=== PATIENT | male | born 1985 | race Caucasian/White ===

== ENCOUNTER 2021-01-14 16:39 | Inpatient (IN) ==
[2021-01-14] MEDS ORDERED: CLINDAMYCIN 900 MG in DEXTROSE 5% 50 ML IV ONE (17:29)
[2021-01-14] MEDS ORDERED: ONDANSETRON INJ 2 MG/ML 2 ML VIAL IV STA (17:29)
[2021-01-14] MEDS ORDERED: SODIUM CHLORIDE 0.9% 500 ML IV SCH (17:30)
[2021-01-14 17:48] LABS: Basophils # (auto) 0.01 K/uL (0-0.2); Basophils % (auto) 0.1 %; Eosinophils # (auto) 0.02 K/uL (0-0.5); Eosinophils % (auto) 0.2 %; Hematocrit (blood only) 39.8 % (42-52); Hemoglobin 13.7 g/dL (14.0-18.0); Immature Granulocytes # (auto) 0.02 K/uL (0.00-0.02); Immature Granulocytes % (auto) 0.2 %; Lymphocytes # (auto) 0.74 K/uL (1.2-3.4); Lymphocytes % (auto) 8.6 %; Mean Corpuscular Hemoglobin 31.7 pg (25-34); Mean Corpuscular Hgb Conc 34.4 g/dL (32-36); Mean Corpuscular Volume 92.1 fL (80-100); Mean Platelet Volume 12.1 fL (7.4-10.4); Monocytes % (auto) 8.1 %; Neutrophils # (auto) 7.16 K/uL (1.4-6.5); Neutrophils % (auto) 82.8 %; Platelet Count 144 K/uL (130-400); RDW Coefficient of Variation 12.5 % (11.5-14.5); RDW Standard Deviation 42.5 fL (36.4-46.3); Red Blood Count 4.32 M/uL (4.7-6.1); White Blood Count 8.65 K/uL (4.8-10.8)
[2021-01-14] MEDS: MoRPHine SULFATE 4 MG/ML 1 ML CARP\\VIAL IV PRN ×2 (17:55→19:07)
--- NOTE | 2021-01-14 18:02 | Emergency Department Note ---
Impression & Plan Submandibular abscess, Failure of outpatient treatment, Jaw pain ED Provider Note NAME: ANDREZ RG AGE: 35 SEX: M : 1985 ARRIVES VIA: Walk-In INFORMANT: [Patient] ED PROVIDER(S): [Terry Gonzalez MD] CHIEF COMPLAINT: Jaw pain and swelling HISTORY OF PRESENT ILLNESS: Patient is a 35-year-old male who presents to the ER with right jaw pain and swelling. The patient was seen in our ED around 36 hours ago and diagnosed with a submandibular abscess. He was given IV antibiotics. Lab work was okay. CT scan did show the abscess, there was no airway issues at the time. Patient has continued with the Augmentin. He attempted to schedule a facial surgical ap pointment but, cannot be seen until May, months from now. Patient presents tonight with severe, 9/10 jaw pain. He has trismus in that he cannot open his jaw. He cannot sleep and feels exhausted. He is breathing okay. No shortness of breath. He has not had fever. The patient states that there has been no nausea or vomiting, no diarrhea. He is asking for something for pain and some help with getting this abscess drained. REVIEW OF SYSTEMS: See HPI for pertinent positives and negatives. A total of ten systems were reviewed and were otherwise negative. PMHx/PSHx: See Below SOCIAL HISTORY: See Below. PHYSICAL EXAM: GENERAL: Patient is in no acute distress. HEENT: No acute trauma. The patient does have a right lower jaw swelling. There is tenderness to palpation and there is a firm mass to the underside of the right mandible. No facial erythema. There is no swelling to the floor the mouth. His dentition in general is poor. No throat erythema or exudate, no u vular edema. Trismus is present. NECK: No stridor, no meningismus, trachea is midline. LUNGS: Clear to auscultation bilaterally, no wheeze, no rhonchi, breath sounds equal. HEART: Without murmurs gallops or rubs, regular rate and rhythm. ABDOMEN: Soft, nontender, bowel sounds positive, no hernias, no peritonitis. EXTREMITIES: No cyanosis or edema, full range of motion of all the joints without pain or difficulty, no signs for acute trauma. NEUROLOGIC: Oriented x 3, no acute motor or sensory deficits, no focal weakness. SKIN: No rash, no jaundice, no diaphoresis. DIFFERENTIAL DIAGNOSIS: Phu's angina, dental abscess, airway compromise, pharyngitis, uvular edema, failed outpatient treatment, dehydration. EMERGENCY DEPARTMENT COURSE/PROCEDURES: MEDICAL DECISION MAKING: There is no leukocytosis or concerning anemia. There is a normal platelet count. No significant electrolyte abnormality or kidney failure. Covid testing is currently pending. I did review the CT from the , the patient does have a right-sided summitted with her abscess. The patient received IV morphine, IV Zofran, he was given IV saline. He received IV clindamycin. Patient is failing outpatient treatment. He needs this abscess drained. I did speak with maxillofacial surgery. Hospitalization and surgical intervention tomorrow was recommended. The patient is aware of his findings, I did speak with case management. The on- call hospitalist has been consulted. Past Med/Surg History Medical History Dental abscess Grinding tooth Family History (Updated 01/14/21 @ 18:28 by Deny Rayo MD) Father Hypertension Social History Smoking Status: Current every day smoker Tobacco Type: Cigarettes Feels Safe at Home: Yes Allergies Allergies Allergy/AdvReac Type Severity Reaction Status Date / Time No Known Allergies Allergy Verified 01/14/21 18:20 Home Meds Previous Rx's Medication Instructions Recorded amoxicillin-pot clavulanate 1 tab PO BID #20 tab 01/13/21 [Augmentin] Results & Data (ED) Vital Signs Vital Signs - 24 hr 01/14/21 16:41 Temperature 36.5 C Temperature Source Temporal Artery Scan Pulse Rate 109 H Respiratory Rate 18 Blood Pressure 142/80 H Blood Pressure Mean 100 Pulse Oximetry 98 Oxygen Delivery Method Room Air Sepsis Recent Fever Within 48 Hours No Sepsis New/Unexplained Change in Mental Status No Sepsis Action Taken by Nursing No Action Required Home Medications Current Medication List: was personally reviewed by me Laboratory Data Attestation: I reviewed the patient's lab results. Result diagrams: 01/14/21 17:40 01/14/21 17:40 Lab Results 01/14/21 01/14/21 01/14/21 Range/Units 17:40 17:40 18:20 WBC 8.65 (4.8-10.8) K/uL RBC 4.32 L (4.7-6.1) M/uL Hgb 13.7 L (14.0-18.0) g/dL Hct 39.8 L (42-52) % MCV 92.1 (80-100) fL MCH 31.7 (25-34) pg MCHC 34.4 (32-36) g/dL RDW Std Deviation 42.5 (36.4-46.3) fL RDW Coeff of Mroro 12.5 (11.5-14.5) % Plt Count 144 (130-400) K/uL MPV 12.1 H (7.4-10.4) fL Immature Gran % (Auto) 0.2 % Neut % (Auto) 82.8 % Lymph % (Auto) 8.6 % Talbot % (Auto) 8.1 % Eos % (Auto) 0.2 % Baso % (Auto) 0.1 % Neut # (Auto) 7.16 H (1.4-6.5) K/uL Lymph # (Auto) 0.74 L (1.2-3.4) K/uL Talbot # (Auto) 0.70 H (0.11-0.59) K/uL Eos # (Auto) 0.02 (0-0.5) K/uL Baso # (Auto) 0.01 (0-0.2) K/uL Immature Gran # (Auto) 0.02 (0.00-0.02) K/uL Sodium 138 (136-145) mmol/L Potassium 3.7 (3.5-5.1) mmol/L Chloride 104 (98-107) mmol/L Carbon Dioxide 29 (21-32) mmol/L Anion Gap 5.0 (3-11) BUN 9 (7-18) mg/dl Creatinine 0.90 (0.6-1.4) mg/dl Est Cr Clr Drug Dosing 126.1 ml/min Est GFR ( Amer) 128.7 Est GFR (Non-Af Amer) 111.0 BUN/Creatinine Ratio 9.8 L (10-20) Glucose 110 H (70-99) mg/dl Calcium 9.5 (8.5-10.1) mg/dl COVID-19 Eval Order Covid19 [facility]Now [facility] Administered Medications Sodium Chloride (Nss) 500 mls @ 125 mls/hr IV .Q4H ELSA Stop: 02/13/21 17:29 Last Admin: 01/14/21 17:55 Dose: 125 mls/hr Documented by: [id number] Morphine Sulfate (Morphine Sulfate 4 Mg/Ml 1 Ml Carp\Vial) 4 mg IV Q15M PRN PRN Reason: Pain Stop: 01/28/21 17:28 Last Admin: 01/14/21 17:55 Dose: 4 mg Documented by: [id number] Discontinued Medications Clindamycin Phosphate 900 mg/ (Dextrose) 56 mls @ 112 mls/hr IV ONE ONE Stop: 01/14/21 17:58 Last Admin: 01/14/21 18:19 Dose: 112 mls/hr Documented by: [id number] Ondansetron HCl (Ondansetron Inj 2 Mg/Ml 2 Ml Vial) 4 mg IV NOW STA Stop: 01/14/21 17:30 Last Admin: 01/14/21 17:55 Dose: 4 mg Documented by: [id number] Imaging Data Radiologist's Impression: CT SCAN OF THE NECK WITH IV CONTRAST from JAN 13, 2021 CLINICAL HISTORY: Right-sided facial pain and swelling. COMPARISON STUDY: No priors. TECHNIQUE: Following the IV administration of 93 cc of Optiray 320, CT scan of the soft tissues of the neck was performed from the skull base to the upper chest. Images are reviewed in the axial, sagittal, and coronal planes. IV contrast was administered without complication. A dose lowering technique was utilized adhering to the principles of ALARA. CT DOSE: 598.32 mGy.cm FINDINGS: Dentition: There are several dental caries involving the bilateral molars. Periapical lucencies are seen involving bilateral mandibular molars. Soft tissues: There is significant superficial deep soft tissue edema identified around the right posterior mandible. A multiloculated fluid collection on the undersurface of the right mandible seen on image #284 measures 2.1 x 2.8 x 1.9 cm. There is infiltration of the right seminal difference sublingual soft tissues. This mildly effaces the right anterior aspect of the airway. Soft tissue infiltration and trace fluid tracks inferiorly along the right sternocleidomastoid muscle. Pharynx: As noted above, there is mild mass effect identified on the right anterior pharyngeal airway's related to submandibular and sublingual soft tissue infiltration. There is no evidence of peritonsillar fluid collection. There is no evidence of mass lesion. The vocal cords are symmetric. The parapharyngeal fat is maintained. The prevertebral/retropharyngeal soft tissues are within normal limits. Lymphadenopathy: Prominent right cervical lymph nodes are likely reactive Thyroid: Normal in size and attenuation. Salivary glands: The right central mandibular gland appears mildly enlarged and edematous. The parotid and left submandibular glands are within normal limits. Brain parenchyma: The visualized brain parenchyma at the skull base is normal in appearance. Vascular structures: Unremarkable. Skeletal structures: Imaged portions of the calvarium at the skull base are within normal limits. The cervical spine appears intact. No lytic or blastic lesions are seen. Orbits: The bony orbits are intact. Orbital contents are normal as imaged. Sinuses and mastoids: Mild mucosal thickening and subcentimeter retention cysts are noted in the maxillary antra. Trace mucosal thickening is seen within the ethmoid sinuses. The remaining paranasal sinuses are clear. The mastoid air cells are well pneumatized. Lung apices: Visualized apical lung parenchyma is clear. An accessory azygous fissure is incidentally noted. IMPRESSION: 1. There is a 2.8 cm multiloculated fluid collection along the undersurface of the right posterior mandible with surrounding inflammation. This is typical in appearance for abscess. 2. Inflammation involves the right submandibular and sublingual space. Phu's angina would be impossible to exclude in the appropriate clinical setting. Clinical correlation will be essential. 3. There is a mild narrowing of the right anterior pharyngeal airway. The pharyngeal soft tissues are otherwise normal in appearance. 4. There are numerous bilateral dental caries involving the molars, as well as periapical lucencies involving bilateral mandibular molars. Infection may be odontogenic in etiology. 5. The right submandibular gland appears mildly enlarged and edematous. This is likely related to surrounding infection. Discharge Plan Visit Data Chief Complaint: Facial Injury/Pain Stated Complaint: RIGHT LOWER JAW PAIN ED Provider: Terry Gonzalez Discharge Problem: Submandibular abscess, Failure of outpatient treatment, Jaw pain Patient Disposition: Admitted As Inpatient Condition: Fair Forms Stand Alone Forms: [facility] [employer] Prescriptions Prescriptions: No Action amoxicillin-pot clavulanate [Augmentin] 875-125 mg tablet 1 tab PO BID Qty: 20 RF: 0 Referrals Referrals: Lashanellcher,Aliyah L [Primary Care Provider] -
[2021-01-14 18:13] LABS: BUN Creatinine Ratio 9.8 (10-20); Calcium 9.5 mg/dl (8.5-10.1); Creatinine Clr Calc Pharmacy 126.1 ml/min; Est GFR (African American) 128.7; Potassium 3.7 mmol/L (3.5-5.1)
--- NOTE | 2021-01-14 18:36 | History & Physical Report ---
Date of Service January 14, 2021 Assessment & Plan (1) Submandibular abscess: CT soft tissue of neck on 2.8 cm multiloculated fluid collection along the undersurface of the right posterior mandible on 01/13. No signs on clinical exam of Phu's angina. No signs of airway compromise at this time. - ED provider spoke with Dr. Segura who plans for surgery tomorrow. - NPO with only sips/chips - Discussed with anesthesiology who saw him in the ED without immediate concerns. - PCU status overnight for close monitoring. We discussed concerning symptoms the patient should notify the nurse about (drooling, trouble swallowing, shortness of breath, etc.). - Start Unasyn - MRSA swab - Blood cultures (2) DVT prophylaxis: SCDs - Low DVT risk per admission calculator History of Present Illness Primary Care Provider: Aliyah Hilton 35yo M w/ hx of poor dentition and tooth grinding who presents with right submandibular abscess. He reports that night/Wednesday morning, his right lower molar started hurting. He has had dental abscesses in the past, and he had some extra Augmentin at his house. He took a few days of the Augmentin without improvement and came to the ER. In the ER, a CT scan of his neck/soft tissue showed a 2.8 cm abscess along the undersurface of the right posterior mandible. He was given ceftriaxone in the ED and sent home with further Augmentin and the recommendation to see his dentist. However, he reports he cannot get the needed surgery because [place] [facility] [place] up[place], and he does not have the money for this. He reports some subjective fevers at home, but no objective fever. Denies any trouble handling his secretions (it is painful to swallow, but he can easily do it), no trouble breathing, no stridor, and no shortness of breath. Allergies Allergy/AdvReac Type Severity Reaction Status Date / Time No Known Allergies Allergy Verified 01/14/21 18:20 Home Medications Medication Instructions Recorded Confirmed Type amoxicillin-pot clavulanate 1 tab PO BID #20 tab 01/13/21 Rx [Augmentin] Past Med/Surg History Medical History (Updated 01/14/21 @ 18:30 by Deny Rayo MD) Dental abscess Grinding tooth Family History (Updated 01/14/21 @ 18:28 by Deny Rayo MD) Father Hypertension Social History Smoking Status: Current every day smoker Tobacco Type: Cigarettes Feels Safe at Home: Yes Review of Systems Review of Systems: All systems reviewed & are unremarkable except as noted in HPI & below Physical Exam Constitutional: WD/WN, vitals as above Eyes: EOM intact bilaterally; no conjunctival abnormality ENMT: Mouth: + dental caries Mouth / Teeth: 1. Unable to fully open mouth. Neck: trachea midline, no thyromegaly + submandibular swelling (Right side); no neck crepitus Respiratory: normal respiratory effort, lungs clear to auscultation no respiratory distress Cardiovascular: Rate/Rhythm: regular rhythm and + tachycardic Heart Sounds: normal S1 and normal S2 Vessels: no JVD Extremities: no edema Gastrointestinal (Abdomen): Inspection/Auscultation: abdomen normal to inspection; abdomen not distended Musculoskeletal: no cyanosis or clubbing, extremities motor strength 5/5 Skin: no rashes, warm and dry Neurologic: moves all extremities and awake Psychiatric: Orientation: alert, oriented to person and cooperative Results & Data Results & Data ([facility]) Vital Signs (Past 12 Hours) Vital Signs Temp Pulse Resp BP Pulse Ox 01/14/21 16:41 36.5 C 109 H 18 142/80 H 98 Code Status & VTE Plan VTE Prophylaxis Plan VTE Prophylaxis will be ordered: Yes PG Care Time/CCT Total # of Minutes Spent Total Time Spent with Patient: Total time spent is greater than 50% in coordination of care (as documented) at patient's floor/unit and/or counseling patient: Coding Level of Care Code 78363 Initial Inpt Care Lvl 3 Diagnoses Submandibular abscess K12.2 DVT prophylaxis Z29.9
[2021-01-14] MEDS ORDERED: ONDANSETRON INJ 2 MG/ML 2 ML VIAL IV PRN (20:15)
[2021-01-14] MEDS: NORMOSOL-R 1,000 ML IV SCH (20:30)
--- NOTE | 2021-01-14 21:08 | Anesthesiology Consultation ---
Date of Service January 14, 2021 Assessment & Plan Chart Review Chart Review: Acceptable Risk for Surgery and Patient NOT seen in Pre Admission Testing Consults Requested none ASA ASA2 Proposed Anesthesia Anesthesia Type: General Additional Comments: covid test negative History Height/Weight Height: 5 ft 9 in Weight: 85 kg Allergies Allergy/AdvReac Type Severity Reaction Status Date / Time No Known Allergies Allergy Verified 01/14/21 18:20 Medications Home Medications Medication Instructions Recorded Confirmed Last Taken amoxicillin-pot clavulanate 1 tab PO BID #20 tab 01/13/21 01/14/21 01/14/21 [Augmentin] AM DOSE Active Medications Generic Name Dose Route Start Last Admin Trade Name Freq PRN Reason Stop Dose Admin Parenteral Electrolytes 1,000 mls @ 80 mls/hr 01/14/21 20:15 01/14/21 20:30 Normosol-R IV 02/13/21 20:14 80 mls/hr .[id number] ELSA Administration Past Medical History Medical History Dental abscess Grinding tooth Exercise / Class Metabolic Activity II 4-5 Yardwork/Stairs/Walk up hill Past Family History Family History Father Hypertension Past Anesthesia History No Hx of Anesthesia Complications and No Family Hx of Anesthesia Complications History of PONV No Hx of PONV and No Hx of Motion Sickness Social History Smoking Status: Current every day smoker Do You Dip or Chew Tobacco: No Hx Alcohol Use: No Hx Substance Use: No Physical Exam Vital Signs Last Vital Signs Temp 38.8 C H 01/14/21 20:13 Pulse 102 H 01/14/21 20:43 Resp 18 01/14/21 20:13 BP 156/97 H 01/14/21 20:13 Pulse Ox 95 01/14/21 20:13 Constitutional average body habitus ENMT Mouth: + restricted motion of mouth and + poor dentition Thyromental Distance: > or= 3.5 Finger Breadths Mallampati Class: Other (probably 2,but decreased opening 2ndary to pain and swelling) Neck trachea midline, + submandibular swelling (right side) and + facial hair Respiratory normal respiratory effort Auscultation: lungs clear to auscultation bilaterally Cardiovascular RRR, no murmur, no edema Rate/Rhythm: regular rate and regular rhythm Heart Sounds: no murmur Vessels: no carotid bruit Neurologic CN's II-XI intact bilaterally; no focal motor deficits Speech / Cognition: normal speech Motor/Sensory: normal movement and no sensory deficit Cranial Nerves: tongue midline Psychiatric A+Ox3, euthymic affect Testing Laboratory Results 01/14/21 17:40 01/14/21 17:40
--- NOTE | 2021-01-14 21:32 | Communication Note ---
Date of Service: January 14, 2021 Nursing notified me that the patient was febrile and did not have Tylenol available and that his pain was not well controlled with Morphine. I added on Tylenol and Dilaudid 0.5 Q3H PRN for severe pain.
[2021-01-14] MEDS: HYDROmorphone INJ 0.5 MG/0.5 ML SYR IV PRN (21:38)
[2021-01-14] MEDS: ACETAMINOPHEN 325 MG TAB PO PRN (21:38)
[2021-01-14] MEDS: AMPICILLIN/SULBACTAM SOD 3,000 MG in 0.9 % SODIUM CHLORIDE 100 ML IV SCH (21:38)
[2021-01-15] MEDS: HYDROmorphone INJ 0.5 MG/0.5 ML SYR IV PRN ×5 (00:41→21:06)
[2021-01-15] MEDS: AMPICILLIN/SULBACTAM SOD 3,000 MG in 0.9 % SODIUM CHLORIDE 100 ML IV SCH ×4 (03:04→21:21)
[2021-01-15 05:59] LABS: Hematocrit (blood only) 38.7 % (42-52); Hemoglobin 13.1 g/dL (14.0-18.0); Mean Corpuscular Hemoglobin 32.1 pg (25-34); Mean Corpuscular Hgb Conc 33.9 g/dL (32-36); Mean Corpuscular Volume 94.9 fL (80-100); Mean Platelet Volume 12.6 fL (7.4-10.4); Platelet Count 145 K/uL (130-400); RDW Coefficient of Variation 12.8 % (11.5-14.5); RDW Standard Deviation 44.4 fL (36.4-46.3); Red Blood Count 4.08 M/uL (4.7-6.1); White Blood Count 10.48 K/uL (4.8-10.8)
[2021-01-15 06:25] LABS: BUN Creatinine Ratio 11.1 (10-20); Calcium 8.8 mg/dl (8.5-10.1); Creatinine Clr Calc Pharmacy 140.6 ml/min; Est GFR (African American) 135.1; Est GFR (Non-African American) 116.6; Magnesium 2.2 mg/dl (1.8-2.4); Potassium 3.9 mmol/L (3.5-5.1)
[2021-01-15] MEDS: ACETAMINOPHEN 325 MG TAB PO PRN (08:06)
--- NOTE | 2021-01-15 08:10 | Hospitalist Progress Note ---
Date of Service January 15, 2021 Assessment & Plan (1) Submandibular abscess: * CT soft tissue of neck on 2.8 cm multiloculated fluid collection along the undersurface of the right posterior mandible on 01/13. No signs on clinical exam of Phu's angina. No signs of airway compromise at this time. * Dr Segura on consult * Continue NPO except sips/chips * Tylenol, Morphine, Diluadid for pain control/fever * Zofran prn nausea * Continue Unasyn * Blood cultures pending * MRSA nasal swab negative * Plans for OR today (2) DVT prophylaxis: * SCDs - Low DVT risk per admission calculator * Chemoproph held for OR Dispo: OR this afternoon with Dr. Segura Admission and Anticipated Discharge Date Admission Date: January 14, 2021 Subjective Patient evaluated this morning. Has not been seen by Dr. Segura yet today or known time for OR. Discussed I will reach out to see when he plans on coming. Has still not had anything to eat. Maintaining his own secretions and not short of breath. Has been breathing through his nose mostly. Swelling has increased and does have some pain with swallowing at times. Addition of pain medication last night with dilaudid helping more with pain but after examination requesting additional dose. Low grade temp this morning, improved with tylenol. No chest pain, shortness of breath, abdominal pain, nausea or vomiting at this time. Plans for intervention today for abscess. Previously had been following with dentist and need for multiple extractions/dental caries. Review of Systems Review of Systems: All systems reviewed & are unremarkable except as noted in HPI & below Physical Exam Constitutional: WD/WN, vitals as above cooperative; no acute distress Eyes: + anicteric sclerae and PERRL ENMT: Mouth: + restricted motion of mouth (due to swelling) and + poor dentition Neck: trachea midline, + submandibular swelling (right side, tender to palpation, indurated) and + facial hair; no neck crepitus Respiratory: normal respiratory effort; no respiratory distress Auscultation: lungs clear to auscultation bilaterally Cardiovascular: Rate/Rhythm: regular rate and regular rhythm Heart Sounds: normal S1 and normal S2; no murmur Vessels: no JVD and no carotid bruit Extremities: no edema Gastrointestinal (Abdomen): Inspection/Auscultation: abdomen normal to ins pection; abdomen not distended Musculoskeletal: no cyanosis or clubbing, extremities motor strength 5/5 Skin: no rashes, warm and dry Neurologic: CN's II-XI intact bilaterally, moves all extremities and awake; no focal motor deficits Speech / Cognition: normal speech Motor/Sensory: normal movement and no sensory deficit Cranial Nerves: tongue midline Psychiatric: A+Ox3, euthymic affect Orientation: alert, oriented to person and cooperative Results & Data Results & Data ([facility]) Vital Signs (Past 12 Hours) Vital Signs Temp Pulse Pulse Resp BP Pulse Ox 01/15/21 07:47 37.9 C H 98 H 19 141/82 H 95 01/15/21 04:00 37 C 89 20 138/80 94 01/15/21 00:00 36.7 C 89 18 130/75 93 01/14/21 23:29 100 H 01/14/21 20:43 102 H 01/14/21 20:13 38.8 C H 101 H 18 156/97 H 95 Laboratory Results 01/15/21 01/15/21 01/14/21 Range/Units 05:15 05:15 20:00 WBC 10.48 (4.8-10.8) K/uL RBC 4.08 L (4.7-6.1) M/uL Hgb 13.1 L (14.0-18.0) g/dL Hct 38.7 L (42-52) % MCV 94.9 (80-100) fL MCH 32.1 (25-34) pg MCHC 33.9 (32-36) g/dL RDW Std Deviation 44.4 (36.4-46.3) fL RDW Coeff of Morro 12.8 (11.5-14.5) % Plt Count 145 (130-400) K/uL MPV 12.6 H (7.4-10.4) fL Immature Gran % (Auto) % Neut % (Auto) % Lymph % (Auto) % [place] % (Auto) % Eos % (Auto) % Baso % (Auto) % Neut # (Auto) (1.4-6.5) K/uL Lymph # (Auto) (1.2-3.4) K/uL [place] # (Auto) (0.11-0.59) K/uL Eos # (Auto) (0-0.5) K/uL Baso # (Auto) (0-0.2) K/uL Immature Gran # (Auto) (0.00-0.02) K/uL Sodium 138 (136-145) mmol/L Potassium 3.9 (3.5-5.1) mmol/L Chloride 103 (98-107) mmol/L Carbon Dioxide 28 (21-32) mmol/L Anion Gap 7.0 (3-11) BUN 9 (7-18) mg/dl Creatinine 0.80 (0.6-1.4) mg/dl Est Cr Clr Drug Dosing 140.6 ml/min Est GFR ( Amer) 135.1 Est GFR (Non-Af Amer) 116.6 BUN/Creatinine Ratio 11.1 (10-20) Glucose 88 (70-99) mg/dl Calcium 8.8 (8.5-10.1) mg/dl Magnesium 2.2 (1.8-2.4) mg/dl Nasal Screen MRSA (PCR) Negative (Negative) COVID-19 Eval Order SARS-CoV-2, RNA, NAAT (NEGATIVE) 01/14/21 01/14/21 01/14/21 Range/Units 18:20 18:20 17:40 WBC (4.8-10.8) K/uL RBC (4.7-6.1) M/uL Hgb (14.0-18.0) g/dL Hct (42-52) % MCV (80-100) fL MCH (25-34) pg MCHC (32-36) g/dL RDW Std Deviation (36.4-46.3) fL RDW Coeff of Morro (11.5-14.5) % Plt Count (130-400) K/uL MPV (7.4-10.4) fL Immature Gran % (Auto) % Neut % (Auto) % Lymph % (Auto) % [place] % (Auto) % Eos % (Auto) % Baso % (Auto) % Neut # (Auto) (1.4-6.5) K/uL Lymph # (Auto) (1.2-3.4) K/uL [place] # (Auto) (0.11-0.59) K/uL Eos # (Auto) (0-0.5) K/uL Baso # (Auto) (0-0.2) K/uL Immature Gran # (Auto) (0.00-0.02) K/uL Sodium 138 (136-145) mmol/L Potassium 3.7 (3.5-5.1) mmol/L Chloride 104 (98-107) mmol/L Carbon Dioxide 29 (21-32) mmol/L Anion Gap 5.0 (3-11) BUN 9 (7-18) mg/dl Creatinine 0.90 (0.6-1.4) mg/dl Est Cr Clr Drug Dosing 126.1 ml/min Est GFR ( Amer) 128.7 Est GFR (Non-Af Amer) 111.0 BUN/Creatinine Ratio 9.8 L (10-20) Glucose 110 H (70-99) mg/dl Calcium 9.5 (8.5-10.1) mg/dl Magnesium (1.8-2.4) mg/dl Nasal Screen MRSA (PCR) (Negative) COVID-19 Eval [facility] SARS-CoV-2, RNA, NAAT NEGATIVE (NEGATIVE) 01/14/21 Range/Units 17:40 WBC 8.65 (4.8-10.8) K/uL RBC 4.32 L (4.7-6.1) M/uL Hgb 13.7 L (14.0-18.0) g/dL Hct 39.8 L (42-52) % MCV 92.1 (80-100) fL MCH 31.7 (25-34) pg MCHC 34.4 (32-36) g/dL RDW Std Deviation 42.5 (36.4-46.3) fL RDW Coeff of Morro 12.5 (11.5-14.5) % Plt Count 144 (130-400) K/uL MPV 12.1 H (7.4-10.4) fL Immature Gran % (Auto) 0.2 % Neut % (Auto) 82.8 % Lymph % (Auto) 8.6 % [place] % (Auto) 8.1 % Eos % (Auto) 0.2 % Baso % (Auto) 0.1 % Neut # (Auto) 7.16 H (1.4-6.5) K/uL Lymph # (Auto) 0.74 L (1.2-3.4) K/uL [place] # (Auto) 0.70 H (0.11-0.59) K/uL Eos # (Auto) 0.02 (0-0.5) K/uL Baso # (Auto) 0.01 (0-0.2) K/uL Immature Gran # (Auto) 0.02 (0.00-0.02) K/uL Sodium (136-145) mmol/L Potassium (3.5-5.1) mmol/L Chloride (98-107) mmol/L Carbon Dioxide (21-32) mmol/L Anion Gap (3-11) BUN (7-18) mg/dl Creatinine (0.6-1.4) mg/dl Est Cr Clr Drug Dosing ml/min Est GFR ( Amer) Est GFR (Non-Af Amer) BUN/Creatinine Ratio (10-20) Glucose (70-99) mg/dl Calcium (8.5-10.1) mg/dl Magnesium (1.8-2.4) mg/dl Nasal Screen MRSA (PCR) (Negative) COVID-19 Eval Order SARS-CoV-2, RNA, NAAT (NEGATIVE) Diagnostic Findings CT SCAN OF THE NECK WITH IV CONTRAST IMPRESSION: 1. There is a 2.8 cm multiloculated fluid collection along the undersurface of the right posterior mandible with surrounding inflammation. This is typical in appearance for abscess. 2. Inflammation involves the right submandibular and sublingual space. Phu's angina would be impossible to exclude in the appropriate clinical setting. Clinical correlation will be essential. 3. There is a mild narrowing of the right anterior pharyngeal airway. The pharyngeal soft tissues are otherwise normal in appearance. 4. There are numerous bilateral dental caries involving the molars, as well as periapical lucencies involving bilateral mandibular molars. Infection may be odontogenic in etiology. 5. The right submandibular gland appears mildly enlarged and edematous. This is likely related to surrounding infection. PG Care Time/CCT Total # of Minutes Spent Total Time Spent with Patient: Total time spent is greater than 50% in coordination of care (as documented) at patient's floor/unit and/or counseling patient: Coding Level of Care Code 01485 Subseq Hosp Care Lvl 2 Diagnoses Submandibular abscess K12.2 DVT prophylaxis Z29.9
[2021-01-15] MEDS: NORMOSOL-R 1,000 ML IV SCH (08:43)
--- NOTE | 2021-01-15 11:16 | Oral/Maxillofacial Consult ---
Date of Consultation January 15, 2021 Assessment & Plan (1) Phu's angina syndrome: (2) Failure of outpatient treatment: (3) Jaw pain: (4) Impacted teeth with abnormal position: (5) 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: History of Present Illness Attending Physician: Maurisio De Anda MD Oral Maxillofacial Surgery Exam Present Complaint: I have pain/swelling/drainage from my infected wisdom teeth on the lower right side I can not open my mouth, pain, difficulty swallowing . Symptoms have been ongoing for a while they would come and go. swelling NOW much worse as is pain Oral Exam: Finding-Acute facial infection going on to an early Phu due to the impacted teeth and multi carious teeth , tender gingival tissue with deep pocket formation.Teeth are in an abnormal position and removal is clinical indicated. There is associated infection with many other teeth in the upper right/left and lower left--localized infection with swollen gingival tissues present He has subperiosteal swelling in UR,UL,LL area with gross extraoral swelling right side He can not open and I will defer examination until OR Imaging:--from Dentist Dr Alatorre Panorex: The Panorex X Ray was reviewed, there were no abnormal findings other then the impacted/malposed wisdom teeth. The TMJ are well positioned and no evidence of bony pathology. The sinus, supporting bone all WNL Evaluated the nerve/sinus relationship to the roots of the teeth. The following teeth were impacted/carious # 1,2,12,13,15,16,18,31,32 Soft tissue: floor of the mouth, tongue,submandibular area is grossly swollen as is the mental area right side midline,posterior pharyngeal edema noted on limited view--not able to open due to pain. hard/soft palate, area all with in normal limits, no pathology or abnormal findings noted.supporting bone and gingival tissue of the UR<UL<LL areas is grossly swollen and edematous from chronic dental infection. No lesions noted that require follow up or Bx. Oral Care: Overall oral care is fair Occlusion: Crowding Class I TMJ exam: Due to limited opening from infection --not able to determine Periodontal exam: Infected gingival tissue with evidence of periodontal pathology Head/Neck exam: Neck is swollen, not Able to extend and flex neck w/o difficulty, no airway issues---as swelling is not involving airway Treatment Plan: Set up with general anesthesia in hospital due to complexity of the procedure BEVERLEY I reviewed the treatment plan and consent with the patient Understanding was expressed. Time was given for questions regarding the surgery, risks and post op care. Discussed alternative to treatment-NONE The wisdom teeth are impacted and in an abnormal position, removal is indicated and medically necessary. The following teeth are decayed and fractured and removal is indicated BEVERLEY:# 1,2,12,13,15,16,18,31,32 Risks discussed: Pain,swelling,infection, dry socket, delayed healing, nerve injury to face,lips,tongue,chin area which could be permanent (rare). TMJ, jaw stiffness, change in bite (rare), ear pain (referred). Sinus problems like fistula or infection. Need to leave a small root fragment in place to avoid injury to nerve or sinus. Relationship of wisdom teeth to nerve/sinus and risk of jaw fracture. Home care reviewed: tooth brushing, rinsing, follow up care with Dr Segura. diet=[id number] dental. Discussed activity level, driving/work while on Rx pain Meds. Surgery to be set up BEVERLEY this afternoon Allergies Allergy/AdvReac Type Severity Reaction Status Date / Time No Known Allergies Allergy Verified 01/14/21 18:20 Home Medications Medication Instructions Recorded Confirmed Type amoxicillin-pot clavulanate 1 tab PO BID #20 tab 01/13/21 01/14/21 Rx [Augmentin] Patient History Medical History Dental abscess Grinding tooth Family History Father Hypertension Social History Smoking Status: Current every day smoker Tobacco Type: Cigarettes Second Hand Exposure: No; Hx Alcohol Use: No Hx Substance Use: No Preferred Language: Uzbek Communication Ability: Effective Legal Researcher Required: No Beliefs That Will Affect Care: None Current Living Situation: Family Feels Safe at Home: Yes Assistive Devices: None Results & Data ([facility]) Vital Signs (Past 12 Hours) Vital Signs Temp Pulse Pulse Resp BP Pulse Ox 01/15/21 09:24 36.7 C 02/24/21 08:00 89 01/15/21 07:47 37.9 C H 98 H 19 141/82 H 95 01/15/21 04:00 37 C 89 20 138/80 94 01/15/21 00:00 36.7 C 89 18 130/75 93 01/14/21 23:29 100 H PG Care Time/CCT Total # of Minutes Spent Total Time Spent with Patient: Total time spent is greater than 50% in coordination of care (as documented) at patient's floor/unit and/or counseling patient: Coding Level of Care Code 89995 Office/OBS Consult Lvl 4 Diagnoses Phu's angina syndrome K12.2 Failure of outpatient treatment Z78.9 Jaw pain R68.84 Impacted teeth with abnormal position K01.1 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
[2021-01-15] MEDS: ACETAMINOPHEN 1000 MG/100 ML IV IV PRN (16:18)
[2021-01-15] MEDS ORDERED: ATROPINE SULFATE 0.1 MG/ML 10ML SYR IV PRN (17:49)
[2021-01-15] MEDS ORDERED: HYDROmorphone INJ 2 MG/ML SYR/VIAL IV PRN (17:49)
[2021-01-15] MEDS ORDERED: STERILE IRRIGATING OPTH SOLUTION (BSS) 15ML ONE (17:49)
[2021-01-15] MEDS ORDERED: METOCLOPRAMIDE HCL INJ 5 MG/ML 2 ML VIAL IV PRN (17:49)
[2021-01-15] MEDS ORDERED: PROMETHAZINE HCL 12.5 MG in SODIUM CHLORIDE 0.9% 50 ML IV PRN (17:49)
[2021-01-15] MEDS ORDERED: LIDOCAINE 2%/EPINEPHRINE 1:100,000 1.8 ML CARTRIDGE ONE (17:49)
[2021-01-15] MEDS ORDERED: fentaNYL citrate 100 MCG/2 ML VIAL IV PRN (17:49)
[2021-01-15] MEDS ORDERED: ePHEDrine sulfate 50 MG/ML AMP IV PRN (17:49)
[2021-01-15] MEDS ORDERED: ONDANSETRON INJ 2 MG/ML 2 ML VIAL IV PRN (17:49)
[2021-01-15] MEDS ORDERED: CHLORHEXIDINE GLUCONATE 0.12% 480 ML ONE (17:49)
[2021-01-15] MEDS ORDERED: MIDAZOLAM HCL 1 MG/ML 2ML VIAL ONE (18:04)
[2021-01-15] MEDS ORDERED: fentaNYL citrate 100 MCG/2 ML VIAL ONE ×4 (18:04→20:14)
[2021-01-15] MEDS ORDERED: ONDANSETRON INJ 2 MG/ML 2 ML VIAL ONE (18:43)
[2021-01-15] MEDS ORDERED: PROPOFOL IV EMULSION 10 MG/ML 20 ML VIAL IV ONE (18:43)
[2021-01-15] MEDS ORDERED: SUCCINYLCHOLINE CHLORIDE 20 MG/ML 10 ML VIAL IV ONE (18:43)
[2021-01-15] MEDS ORDERED: ROCURONIUM BROMIDE 10 MG/ML 5 ML VIAL IV ONE (18:43)
[2021-01-15] MEDS ORDERED: LARYING-O-JET KIT (LTA) ONE (18:43)
[2021-01-15] MEDS ORDERED: LIDOCAINE HCL 2% 2 ML VIAL/AMP(20MG/ML) INFIL ONE (18:43)
--- NOTE | 2021-01-15 20:15 | Post Operative Brief Note ---
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 Post-Op Diagnosis: (1) Phu's angina syndrome (2) Failure of outpatient treatment (3) Jaw pain (4) Impacted teeth with abnormal position (5) 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 I identified the patient and participated in the time-out.: Yes Procedure Operation Date: 01/15/21 10:40 Actual Procedures p Incision and Drainage,(Not Applicable) - Rakan Segura DMD s Removal of [place] Teeth, Along with 1, 2, 12, 13, 15, 16, 18, 31, 32(Not Applicable) - Rakan Segura DMD Surgeon Rakan Segura DMD Champagne Maker none Estimated Blood Loss 15 Findings Consistent with Post-Op Diagnosis Specimens Specimen Description: Culture 1. Internal Oral Cavity 2. Extraoral Drains Upson Drain
--- NOTE | 2021-01-15 20:34 | Anesthesiology Progress Note ---
Date of Service January 15, 2021 Anesthesia Post Procedure Vital Signs Vital Signs: Temp Pulse Pulse Resp BP Pulse Ox 01/15/21 20:30 108 H 21 148/90 H 96 01/15/21 20:20 108 H 18 142/100 H 99 01/15/21 20:10 36.4 C L 126 H 18 166/94 H 99 01/15/21 17:14 38.8 C H 111 H 20 130/81 95 01/15/21 15:59 102 H 01/15/21 15:55 36.8 C 90 16 116/64 96 01/15/21 11:29 37.0 C 92 H 20 134/83 97 01/15/21 09:24 36.7 C 01/15/21 08:00 89 01/15/21 07:47 37.9 C H 98 H 19 141/82 H 95 01/15/21 04:00 37 C 89 20 138/80 94 01/15/21 00:00 36.7 C 89 18 130/75 93 01/14/21 23:29 100 H 01/14/21 20:43 102 H Pain Intensity Right Jaw: Pain Intensity: 6 Neck: Pain Intensity: 4 Transfer of Care Handoff Completed per policy Notes Mental Status: alert / awake / arousable and participated in evaluation Patient Amnestic to Procedure: Yes Nausea / Vomiting: adequately controlled Pain: adequately controlled Airway Patency, RR, SpO2: stable & adequate BP & HR: stable & adequate Hydration State: stable & adequate Anesthetic Complications: no major complications apparent
[2021-01-15] MEDS: MoRPHine SULFATE 4 MG/ML 1 ML CARP\\VIAL IV PRN (22:35)
[2021-01-16] MEDS: HYDROmorphone INJ 0.5 MG/0.5 ML SYR IV PRN ×2 (01:10→11:30)
[2021-01-16] MEDS: NORMOSOL-R 1,000 ML IV SCH ×2 (01:11→16:09)
[2021-01-16] MEDS: MoRPHine SULFATE 4 MG/ML 1 ML CARP\\VIAL IV PRN (03:19)
[2021-01-16] MEDS: AMPICILLIN/SULBACTAM SOD 3,000 MG in 0.9 % SODIUM CHLORIDE 100 ML IV SCH ×4 (03:19→20:09)
[2021-01-16 06:31] LABS: Basophils # (auto) 0.01 K/uL (0-0.2); Basophils % (auto) 0.1 %; Eosinophils # (auto) 0.03 K/uL (0-0.5); Eosinophils % (auto) 0.3 %; Hematocrit (blood only) 37.9 % (42-52); Hemoglobin 12.7 g/dL (14.0-18.0); Immature Granulocytes # (auto) 0.02 K/uL (0.00-0.02); Immature Granulocytes % (auto) 0.2 %; Lymphocytes % (auto) 5.7 %; Mean Corpuscular Hemoglobin 31.6 pg (25-34); Mean Corpuscular Hgb Conc 33.5 g/dL (32-36); Mean Corpuscular Volume 94.3 fL (80-100); Mean Platelet Volume 12.5 fL (7.4-10.4); Monocytes # (auto) 0.71 K/uL (0.11-0.59); Monocytes % (auto) 6.8 %; Neutrophils # (auto) 9.07 K/uL (1.4-6.5); Neutrophils % (auto) 86.9 %; Platelet Count 149 K/uL (130-400); RDW Coefficient of Variation 12.7 % (11.5-14.5); Red Blood Count 4.02 M/uL (4.7-6.1); White Blood Count 10.44 K/uL (4.8-10.8)
[2021-01-16 07:06] LABS: BUN Creatinine Ratio 13.2 (10-20); Calcium 8.8 mg/dl (8.5-10.1); Creatinine Clr Calc Pharmacy 135.2 ml/min; Est GFR (African American) 137.2; Est GFR (Non-African American) 118.4; Potassium 4.2 mmol/L (3.5-5.1)
[2021-01-16] MEDS: ACETAMINOPHEN 1000 MG/100 ML IV IV PRN ×2 (07:36→13:58)
--- NOTE | 2021-01-16 08:01 | Hospitalist Progress Note ---
Date of Service January 16, 2021 Assessment & Plan (1) Submandibular abscess: * CT soft tissue of neck on 2.8 cm multiloculated fluid collection along the undersurface of the right posterior mandible on 01/13. No signs on clinical exam of Phu's angina. No signs of airway compromise at this time. * Dr Segura on consult * s/p I&D with Dr. Segura evening of 01/16 with removal of wisdom teeth, along with 1, 2,12,13,15,16,18,31,32 * Diet plans : Clear --> Full --> Soft Dental * Tylenol, morphine, Dilaudid for pain/fever. zofran prn for nausea * --> Added percocet today and will utilize 1 dose of dilaudid and stick to PO after that for anticipated d/c * Continue Unasyn for next 24 hours with anticipation for d/c tomorrow on Augmentin * --> to have follow up with Dr. Segura on wednesday for drain removal * Cultures pending * Smoking cessation will be important as well (2) DVT prophylaxis: * SCDs - Low DVT risk per admission calculator Tobacco Use -- Educated on smoking cessation. Current 1ppd smoker. -- Denied need for nicotine patch Dispo: likely discharge tomorrow Admission and Anticipated Discharge Date Admission Date: January 14, 2021 Subjective Patient evaluated this morning. States he feels defeated at this time as he is unable to drink/eat much with current heating pad/wrap and is having bloody secretions currently cleared with suctioning in the room. Mild temp this morning controlled with tylenol. Pain controlled for the most part, but increased with movement and swallowing. Got morphine at 3am (not as effective as the dilaudid) and tylenol around 7 and requesting something at this time. Will given 1 dose of dilaudid now and continue with percocet for anticipation for d/c tomorrow. Discussed smoking cessation. Requesting if possible to have dressing off for periods of time for comfort. No chest pain, shortness of breath, abdominal pain, nausea, vomiting. Passing gas and moving bowels. Review of Systems Review of Systems: All systems reviewed & are unremarkable except as noted in HPI & below Physical Exam Constitutional: WD/WN, vitals as above no acute distress Eyes: + anicteric sclerae and PERRL ENMT: Mouth: + restricted motion of mouth (due to swelling) dressing to mouth with bloody drainage on gauze multiple bloody stained tissues/saliva in basin on bed packing to multiple teeth with drainage decreased ability to open mouth due to swelling swelling improved, less induration no streaking keiry drains intact Neck: trachea midline and + facial hair; no neck crepitus Respiratory: normal respiratory effort; no respiratory distress Auscultation: lungs clear to auscultation bilaterally Cardiovascular: Rate/Rhythm: regular rate and regular rhythm Heart Sounds: normal S1 and normal S2; no murmur Vessels: no JVD and no carotid bruit Extremities: no edema Gastrointestinal (Abdomen): Inspection/Auscultation: abdomen normal to inspection; abdomen not distended Musculoskeletal: no cyanosis or clubbing, extremities motor strength 5/5 Skin: no rashes, warm and dry Neurologic: CN's II-XI intact bilaterally, moves all extremities and awake; no focal motor deficits Speech / Cognition: normal speech Motor/Sensory: normal movement and no sensory deficit Cranial Nerves: tongue midline Psychiatric: Orientation: alert, oriented to person and cooperative Affect: + irritable affect Results & Data Results & Data ([facility]) Vital Signs (Past 12 Hours) Vital Signs Temp Pulse Pulse Resp BP Pulse Ox 01/16/21 07:40 36.6 C 102 H 20 128/84 97 01/16/21 03:51 36.8 C 86 14 125/87 92 01/16/21 01:00 36.6 C 98 H 16 123/90 91 01/15/21 23:45 36.6 C 101 H 18 124/95 93 01/15/21 22:45 100 H 17 126/92 93 01/15/21 22:15 36.7 C 104 H 18 135/93 93 01/15/21 21:45 107 H 17 147/87 H 95 01/15/21 21:15 37.3 C 112 H 18 141/82 H 96 01/15/21 21:00 114 H 01/15/21 20:50 118 H 19 142/89 H 98 01/15/21 20:40 37 C 112 H 21 148/92 H 96 01/15/21 20:30 108 H 21 148/90 H 96 01/15/21 20:20 108 H 18 142/100 H 99 01/15/21 20:10 36.4 C L 126 H 18 166/94 H 99 Laboratory Results 01/16/21 01/16/21 Range/Units 06:03 06:03 WBC 10.44 (4.8-10.8) K/uL RBC 4.02 L (4.7-6.1) M/uL Hgb 12.7 L (14.0-18.0) g/dL Hct 37.9 L (42-52) % MCV 94.3 (80-100) fL MCH 31.6 (25-34) pg MCHC 33.5 (32-36) g/dL RDW Std Deviation 44.0 (36.4-46.3) fL RDW Coeff of Morro 12.7 (11.5-14.5) % Plt Count 149 (130-400) K/uL MPV 12.5 H (7.4-10.4) fL Immature Gran % (Auto) 0.2 % Neut % (Auto) 86.9 % Lymph % (Auto) 5.7 % [place] % (Auto) 6.8 % Eos % (Auto) 0.3 % Baso % (Auto) 0.1 % Neut # (Auto) 9.07 H (1.4-6.5) K/uL Lymph # (Auto) 0.60 L (1.2-3.4) K/uL [place] # (Auto) 0.71 H (0.11-0.59) K/uL Eos # (Auto) 0.03 (0-0.5) K/uL Baso # (Auto) 0.01 (0-0.2) K/uL Immature Gran # (Auto) 0.02 (0.00-0.02) K/uL Sodium 138 (136-145) mmol/L Potassium 4.2 (3.5-5.1) mmol/L Chloride 104 (98-107) mmol/L Carbon Dioxide 28 (21-32) mmol/L Anion Gap 6.0 (3-11) BUN 10 (7-18) mg/dl Creatinine 0.77 (0.6-1.4) mg/dl Est Cr Clr Drug Dosing 135.2 ml/min Est GFR ( Amer) 137.2 Est GFR (Non-Af Amer) 118.4 BUN/Creatinine Ratio 13.2 (10-20) Glucose 97 (70-99) mg/dl Calcium 8.8 (8.5-10.1) mg/dl PG Care Time/CCT Total # of Minutes Spent Total Time Spent with Patient: Total time spent is greater than 50% in coord ination of care (as documented) at patient's floor/unit and/or counseling patient: Coding Level of Care Code 28525 Subseq Hosp Care Lvl 2 Diagnoses Submandibular abscess K12.2 DVT prophylaxis Z29.9
[2021-01-16] MEDS ORDERED: CHLORHEXIDINE GLUCONATE 0.12% 480 ML MT PRN (09:36)
--- NOTE | 2021-01-16 09:43 | Surgery Progress Note ---
Date of Service Pete is doing well this AM Diet to start now We will switch to oral meds in preparation for D.C tomorrow I removed the packing and dressings. Excellent drainage noted swelling now softer Oral sites and drain sites look good. PLAN; I would prefer another 24 hours of IV antibiotics I expect he will be able to be discharged tomorrow on oral Meds Augmentin and Percocet will see him Wednesday in my office for drain removal. I will complete the discharge instruction for the oral surg parts of the form January 16, 2021 Assessment & Plan Admission and Anticipated Discharge Date Admission Date: January 14, 2021 Subjective Patient evaluated this morning. Has not been seen by Dr. Segura yet today or known time for OR. Discussed I will reach out to see when he plans on coming. Has still not had anything to eat. Maintaining his own secretions and not short of breath. Has been breathing through his nose mostly. Swelling has increased and does have some pain with swallowing at times. Addition of pain medication last night with dilaudid helping more with pain but after examination requesting additional dose. Low grade temp this morning, improved with tylenol. No chest pain, shortness of breath, abdominal pain, nausea or vomiting at this time. Plans for intervention today for abscess. Previously had been following with dentist and need for multiple extractions/dental caries. Results & Data ([facility]) Vital Signs (Past 12 Hours) Vital Signs Temp Pulse Resp BP Pulse Ox 01/16/21 07:40 36.6 C 102 H 20 128/84 97 01/16/21 03:51 36.8 C 86 14 125/87 92 01/16/21 01:00 36.6 C 98 H 16 123/90 91 01/15/21 23:45 36.6 C 101 H 18 124/95 93 01/15/21 22:45 100 H 17 126/92 93 01/15/21 22:15 36.7 C 104 H 18 135/93 93 01/15/21 21:45 107 H 17 147/87 H 95 PG Care Time/CCT Total # of Minutes Spent Total Time Spent with Patient: Total time spent is greater than 50% in coordination of care (as documented) at patient's floor/unit and/or counseling patient: Coding Level of Care Code 00256 Subseq Hosp Care Lvl 1
[2021-01-16] MEDS ORDERED: Nursing to Pharmacy Communication SCH (16:45)
[2021-01-16] MEDS: oxyCODONE/APAP 7.5/325MG TAB PO PRN ×2 (17:27→21:13)
[2021-01-17] MEDS: oxyCODONE/APAP 7.5/325MG TAB PO PRN ×3 (01:11→11:10)
[2021-01-17] MEDS: AMPICILLIN/SULBACTAM SOD 3,000 MG in 0.9 % SODIUM CHLORIDE 100 ML IV SCH ×2 (02:52→08:07)
[2021-01-17 08:54] LABS: Hematocrit (blood only) 35.3 % (42-52); Hemoglobin 11.9 g/dL (14.0-18.0); Mean Corpuscular Hemoglobin 31.5 pg (25-34); Mean Corpuscular Hgb Conc 33.7 g/dL (32-36); Mean Corpuscular Volume 93.4 fL (80-100); Mean Platelet Volume 12.5 fL (7.4-10.4); Platelet Count 126 K/uL (130-400); Platelet Estimate Decreased (Normal); RDW Coefficient of Variation 12.7 % (11.5-14.5); RDW Standard Deviation 43.7 fL (36.4-46.3); Red Blood Count 3.78 M/uL (4.7-6.1); White Blood Count 5.26 K/uL (4.8-10.8)
[2021-01-17 09:08] LABS: BUN Creatinine Ratio 10.4 (10-20); Calcium 9.1 mg/dl (8.5-10.1); Creatinine Clr Calc Pharmacy 135.2 ml/min; Est GFR (African American) 137.2; Est GFR (Non-African American) 118.4; Potassium 3.6 mmol/L (3.5-5.1)
--- NOTE | 2021-01-17 10:03 | Discharge Summary ---
Date of Service January 17, 2021 Admission HPI Per Admitting Provider 35yo M w/ hx of poor dentition and tooth grinding who presents with right submandibular abscess. He reports that night/Wednesday morning, his right lower molar started hurting. He has had dental abscesses in the past, and he had some extra Augmentin at his house. He took a few days of the Augmentin without improvement and came to the ER. In the ER, a CT scan of his neck/soft tissue showed a 2.8 cm abscess along the undersurface of the right posterior mandible. He was given ceftriaxone in the ED and sent home with further Augmentin and the recommendation to see his dentist. However, he reports he cannot get the needed surgery because all the [facility] doctors he contacted require li upfront, and he does not have the money for this. He reports some subjective fevers at home, but no objective fever. Denies any trouble handling his secretions (it is painful to swallow, but he can easily do it), no trouble breathing, no stridor, and no shortness of breath. Admission Exam Per Admitting Provider Constitutional: WD/WN, vitals as above Eyes: EOM intact bilaterally; no conjunctival abnormality ENMT: Mouth: + dental caries Mouth / Teeth: document embedded image 1. Unable to fully open mouth. Neck: trachea midline, no thyromegaly + submandibular swelling (Right side); no neck crepitus Respiratory: normal respiratory effort, lungs clear to auscultation no respiratory distress Cardiovascular: Rate/Rhythm: regular rhythm and + tachycardic Heart Sounds: normal S1 and normal S2 Vessels: no JVD Extremities: no edema Gastrointestinal (Abdomen): Inspection/Auscultation: abdomen normal to inspection; abdomen not distended Musculoskeletal: no cyanosis or clubbing, extremities motor strength 5/5 Skin: no rashes, warm and dry Neurologic: moves all extremities and awake Psychiatric: Orientation: alert, oriented to person and cooperative Principal Diagnosis Phu's Angina Syndrome, Submandibular Abscess, Failure of Outpatient treatment Discharge Exam Constitutional WD/WN, vitals as above no acute distress Eyes + anicteric sclerae and PERRL ENMT Mouth: + restricted motion of mouth (due to swelling) multiple tooth extractions, bloody drainage noted to dressing from 2 Quan drains new dressing c/d/i tender to palpation but improved less swollen increased ability to open mouth swallows secretions without difficulty and ate eggs without issue Neck trachea midline and + facial hair; no neck crepitus Respiratory normal respiratory effort; no respiratory distress Auscultation: lungs clear to auscultation bilaterally Cardiovascular Rate/Rhythm: regular rate and regular rhythm Heart Sounds: normal S1 and normal S2; no murmur Vessels: no JVD and no carotid bruit Extremities: no edema Gastrointestinal (Abdomen) Inspection/Auscultation: abdomen normal to inspection; abdomen not distended Musculoskeletal no cyanosis or clubbing, extremities motor strength 5/5 Skin no rashes, warm and dry Neurologic CN's II-XI intact bilaterally, moves all extremities and awake; no focal motor deficits Speech / Cognition: normal speech Motor/Sensory: normal movement and no sensory deficit Cranial Nerves: tongue midline Psychiatric Orientation: alert, oriented to person and cooperative Discharge Data Allergies Allergy/AdvReac Type Severity Reaction Status Date / Time No Known Allergies Allergy Verified 01/14/21 18:20 Consultations 01/14/21 18:11 ED Decision to Admit Stat 01/14/21 20:15 Consult Anesthesiology Routine Consult Oromaxillofacial Surgery Routine Procedures Performed Operation Date: 01/15/21 10:40 Actual Procedures p Incision and Drainage,(Not Applicable) - Rakan Segura DMD s Removal of [place] Teeth, Along with 1, 2, 12, 13, 15, 16, 18, 31, 32(Not Applicable) - Rakan Segura DMD Ordered Studies CT Soft Tissue Neck Hospital Course (1) Phu's angina syndrome: CT soft tissue of neck on 2.8 cm multiloculated fluid collection along the undersurface of the right posterior mandible on 01/13. Dr Segura consulted POD#2 s/p I&D with Dr. Segura evening of 01/16 with removal of wisdom teeth, along with 1, 2,12,13,15,16,18,31,32 Diet plans : Clear --> Full --> Soft Dental (tolerated soft dental prior to d/c) Tylenol, morphine, Dilaudid for pain/fever. zofran prn for nausea Discharged with Percocet and Augmentin to complete 14 day course. Had been on Unasyn IV while inpatient Cultures from abscess I&D pending at discharge To follow up with Dr. Segura on Wednesday for drain removal Given information for [facility] and application for MA completed while hospitalized (2) Submandibular abscess: failure of outpatient treatment on augmentin see above (3) Tobacco dependence: educated on cessation no nicotine patch needed while inpatient (4) DVT prophylaxis: SCDs - Low DVT risk per admission calculator Discharged home Total Time Total Time Spent Total Time Spent (In Minutes): 60 Discharge Plan Discharge Items Patient Disposition: Home - Self-Care Reason For Visit: SUBMANDIBULLAR ABSCESS Discharge Diagnosis: s/p facial infection Condition on Discharge: Fair Goals: You have been hospitalized for an urgent problem which required surgery. During your stay at [facility], we have made an effort to correct the problem that brought you to the hospital while keeping you as comfortable as possible. Surgery and medications were used to bring your condition under control and your discharge instructions will include directions for any medications you should take after leaving the hospital. Please make sure to follow the advice of your surgeon regarding follow up with the surgeon and with your primary care provider. Activity: Resume your previous activity Lifting: Gradually increase as tolerated Bathing: No limitations Exercise/Sports: Wait until after follow-up appointment Driving/Machine Use: No limitations Non-emergency contact: Surgeon Call non-emergency contact if: you have any medication questions, your symptoms worsen, your pain is not controlled, your pain is worsening, your pain is concerning for you, your temperature is above 101.5, your wound has increased redness, your wound has increased drainage and your wound pain has increased Follow-up/Referrals: Rakan Segura, DMD [Physician] - 01/21/21 2:00 pm Diet: Regular Diet Texture: Dental soft (bite-sized) Addtl Attending Provider Instructions: ADDITIONAL ACTIVITY RECOMMENDATIONS: * [place] teeth after every meal. It is very important to keep your mouth clean to prevent infection. * Starting tonight rinse with the Peridex as directed then 2 x a day * it is very important to keep well hydrated, this prevents fever and possible dry socket pain SPECIAL CARE INSTRUCTIONS: *It is not uncommon that between day 2-4 that your swelling will be at its worst this is very normal, do not be alarmed. * change the dressing as needed * apply heat (hot water bottle or heating pad) for the next two days, as often as possible. * Tomorrow start rinsing your mouth with 1/2 teaspoon salt in 8 ounces warm water. This rinse should be used every 4-6 hours. * You may experience slight nausea. To prevent this, never take your medication on an empty stomach. If nauseated, take small sips of phuong abdirashid until you feel better; then you may start on applesauce and toast. * Some swelling is common. It should gradually decrease within 4-5 days. * A certain amount of bleeding is to be expected. It is often possible to control mild oozing by placing folded gauze over the area and biting down for 30 minutes. If you are unable to control excessive bleeding, call Dr Segura at [phone] * You may experience some discomfort for a few days. If pain or swelling increases, Call Dr Segura * Return to the office for a follow up check up if one was given to you. * If you do not have a follow up appointment please call the office at [phone] and set one up for 10-15 days after your surgery Addtl Plaster Foreman Provider Instructions: You have been hospitalized for dental infection. Dr. Segura from maxillofacial surgery was consulted and decision was made given rapid progression to a Phu's Angina syndrome that you needed to be taken to the OR for incision and drainage and placement of drains to help with healing. You were treated with IV antibiotics and it is recommended that you continue oral Augmentin twice daily and complete full course of antibiotics as prescribed. You have also been sent a prescription for Percocet for pain to use as needed for breakthrough pain. You can continue to utilize Tylenol as needed for all other non-severe pain, but please note the Percocet also has Tylenol in it and you should avoid exceeding >3,000mg in a 24 hour period of time. Instructions for care/dressing have been reviewed with you by Dr. Segura and you should follow up with his office on Wednesday for removal of drains and to monitor your progress. If you have any questions/concerns please call Dr. Segura at [phone]. You have been provided information on medical assistance and should follow up with our [facility] for routine care during this time. It is VERY IMPORTANT to AVOID SMOKING! Please return to the emergency department with any shortness of breath, worsening/difficulty swallowing, fever, or for any other symptoms that are concerning for you. It has been a pleasure being a part of the medical team providing for you while you have been in the hospital. Pending Studies at Discharge: No Stand-Alone Forms: My [facility], Opioid Pain Management, Smoking Cessation Medications and DC Order Prescriptions: New oxycodone-acetaminophen [Endocet] 7.5-325 mg Tablet 1 tab PO Q4H PRN (Reason: pain) Qty: 14 RF: 0 Continued amoxicillin-pot clavulanate [Augmentin] 875-125 mg tablet 1 tab PO BID 11 Days Qty: 22 RF: 0 Discontinued oxycodone-acetaminophen [Percocet] 7.5-325 mg tablet 1 tab PO Q4H PRN (Reason: pain) Qty: 20 RF: 0 Discharge Orders: Discharge Order (Routine); Ordered 01/17/21 Ordered By: Gabriela Foley Admission Data Admit Date/Time: 01/14/21 18:20 Attending Provider: Maurisio De Anda Admit Provider: Deny Rayo Primary Care Provider: Aliyah Hilton Other Providers: Deny Rayo ; Juan Vazquez ; Rakan Segura Other Interventions: Discharge Summary Assessment (RN) Last Done: 01/17/21 10:13 Coding Level of Care Code D/C Day Management >30 mins Diagnoses Phu's angina syndrome K12.2 Submandibular abscess K12.2 Tobacco dependence F17.200 DVT prophylaxis Z29.9
--- NOTE | 2021-01-18 17:52 | Operative Report ---
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 Post-Op Diagnosis: (1) Phu's angina syndrome (2) Failure of outpatient treatment (3) Jaw pain (4) Impacted teeth with abnormal position (5) 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 I identified the patient and participated in the time-out.: Yes Procedure Operation Date: 01/15/21 10:40 Actual Procedures p Incision and Drainage,(Not Applicable) - Rakan Segura DMD s Removal of [place] Teeth, Along with 1, 2, 12, 13, 15, 16, 18, 31, 32(Not Applicable) - Rakan Segura DMD Actual Procedures p Incision and Drainage Submandibular/ submental,sublingual, subperiosteal, masseter space (Phu) Abscess--right side ; Removal of Tooth in area of acute infection -1, 2, 12, 13, 15, 16, 18, 31, 32(Not Applicable) Rakan Segura DMD Once cleared for surgery general anesthesia was achieved, the eyes were protected by the anesthesia dept criteria. A time out was take for patient ID, antibiotics, equipment and position verification once all agreed the procedure began. Local anesthesia using lidocaine 2% with a vasoconstrictor ( 1.8 ml per site) given into right/left inferior alveolar nerve and Upper R/L posterior maxilla PSA A throat pack was placed after the oral cavity was irrigated with saline. Once a surgical level of anesthesia was obtained and the local anesthesia was given time for the blocks the surgery was started. I turned my attention to the infection which was located in the floor of the mouth and submental area and as described above involving all the facial spaces right side of the face with suspected etiology due to the grossly infected/impacted and carious/fractured teeth 1,2,31,32. The tongue was elevated and the submental (chin) area was also swollen. There was also swelling associated with a few of the upper and lower teeth left side # 12,13,15,16,18 The infected teeth were the cause of the infection with teeth 12,13,15,16,18 being grossly involved and the cause Incision and Drainage right side Using a 15 blade an incision was made lateral to the alveolar ridge and medial to the duct of the submandibular gland. Once the incision was made a lot of pus extruded from the site. This drainage was cultured for anaerobic and aerobic bacteria. Another incision was made in the submental area (midline), The submandibular area and intraoral in the retromandibular space area. A curved hemostat was carefully placed into the infected space along the medial side of the lower jaw and into the submental space incision. A curved hemostat was carefully placed into the infected space along the lateral side of the lower jaw and into the submandibular, mandibular space and masseter space. A 15 blade was used to make an incision in the tuberosity area of the right maxilla--A curved hemostat was carefully placed into the infected space along the lateral wall of the maxilla into the temporal space Much more drainage was now allowed to escape. I palpated the chin and submental area and no further drainage was expressed. The area was irrigated with at least 200 ml of NS solution. I now placed 3 Dolph 1/4 and 1/2 inch drains to maintain drainage of the submandibular/sublingual/mental and temporal spaces. The drains were sutured in place and were functioning very well I now turned my attention to remove the # 28 tooth It was medically necessary to remove the following teeth to drain the infection Extraction of teeth Lower right side #31,32 From the full thick Muco-periosteal flap that was made on the facial aspect from area 30-32. The flap was reflected to expose the the subperiosteal space and the bone adjacent to # 31,32. #32 was impacted and # 31 was grossly carious. The rogue was used to remove bone, the tooth was removed with a 301 elevator, the mental nerve was intact, there was a large amount of granulation tissue on the apex and some more pus that was expressed. The drain was trimmed and the tissue was lightly closed with a 2-0 chromic after irrigating the site. Extraction of teeth Upper right side # 1,2 From the full thick Muco-periosteal flap that was made on the facial aspect from area 1-4 The flap was reflected to expose the the subperiosteal space and bone adjacent to # 1,2. 1 and # 2 were grossly carious. The rogue was used to remove bone, the tooth was removed with a 301 elevator, the sinus was intact, there was a large amount of granulation tissue on the apex and some more pus that was expressed. The drain was trimmed and the tissue was lightly closed with a 2-0 chromic after irrigating the site. This further drained the temporal space through the opened sockets of 1 and 2 Extraction of teeth Upper left side # 12,13,15,16 A full thick Muco-periosteal flap that was made on the facial aspect from the left tuberosity area to site # 11.This large flap was reflected to expose the the subperiosteal space and bone adjacent to # 12,13,15.16. 16 was impacted and 12,13,15 were grossly carious. The rogue was used to remove bone, the tooth was removed with a 301 elevator, the sinus was intact, there was a large amount of granulation tissue on the apex. The site was irrigated, the tissue trimmed and sutured closed with a 2-0chromic, The localized infection was well treated by extraction of the carious/impacted teeth. No further drainage was necessary. Extraction of teeth Lower left t side # 18 From the full thick Muco-periosteal flap that was made on the facial aspect between # 17-19 The flap was reflected to expose the the subperiosteal space and the bone adjacent to #18. #32 was impacted and # 31 was grossly carious. Now the tooth was removed with a 301 elevator, the nerve was intact, there was a large amount of granulation tissue on the apex and some more pus that was expressed. The tissue was lightly closed with a 2-0 chromic after irrigating the site. At this time the case was completed. I inspected the sites to insure all bleeding was controlled and all the drains were working well. I removed the throat pack and suctioned the throat an OG tube was placed. Bilateral gauze pressure dressings were placed. All instrument and sponge count was correct. the patient was allowed to awake from the anesthesia. Once full awake the anesthesia tube was removed and the patient was taken to the recovery room (ICU) with all vital sign stable. The patient tolerated the surgery very well. I will follow the patient in my office, Rx and instructions will be given upon discharge. Surgeon Rakan Segura, DMD Hand Printed Circuit Board Assembler none Estimated Blood Loss 15 Findings Consistent with Post-Op Diagnosis Specimens C&S right side intraoral and extraoral Description of Procedure I&D extraction of infected teeth I attest to the content of the Intraoperative Record and any orders documented therein. Any exceptions are noted below.
== END 2021-01-17 11:35 | disposition home or self-care (01) | DRG 159 ==
LOC: ED 16:39 → 2E 18:20 → SUATTDRO 18:20 → 2E 19:50